=== PATIENT | male | born 1955 | race Caucasian/White ===

== ENCOUNTER 2017-04-12 23:20 | Emergency (ER) | payer MEDICAID ==
[~2017-04-12] VITALS: Ht 190.5 cm; Wt 93.2 kg
[~2017-04-12 23:20] MED LIST: ALPR0.5T PO; CITA20TA11 PO; HYDR2TAB15 PO; METH10SO PO; OLAN10TA7 PO; TEMA30CA PO
[2017-04-13 00:13] VITALS: Ht 190.5 cm; Wt 93.2 kg
--- NOTE | 2017-04-13 02:01 | ERD ---
ER Documentation Chief Complaint Date/Time DATE: 04/13/17 TIME: 01:58 Chief Complaint BIBA, procedure done at [facility] on rt hip,c/o severe pain HPI This is a 61-year-old male presents to the emergency room for evaluation of pain in his hip. The patient states that he has been in the hospital for 2 weeks and came to the emergency room today because he cannot get his prescription of Dilaudid filled. The patient is asking for Dilaudid by name. He is requesting intravenous Dilaudid and states that he cannot get into a pharmacy until Friday for ROS All systems reviewed and are negative except as per history of present illness. Medications Home Meds Active Scripts Alprazolam* (Xanax*) 0.5 Mg Tab, 0.5 MG PO Q8H Y for ANXIETY, #12 TAB Prov:SIVA MOLINA MD 10/26/15 Reported Medications Methadone Hcl* (Methadone Hcl*) 10 Mg/5 Ml Solution, 50 MG PO DAILY, ML 11/04/16 Hydromorphone Hcl* (Dilaudid*) 2 Mg Tablet, 2 MG PO Q4H, TAB 11/04/16 Citalopram Hydrobromide* (Celexa*) 20 Mg Tablet, 20 MG PO DAILY, TAB 12/17/14 Temazepam* (Temazepam*) 30 Mg Capsule, 30 MG PO HS Y for INSOMNIA, CAP 12/17/14 Olanzapine* (Zyprexa*) 10 Mg Tablet, 10 MG PO BID, TAB 12/17/14 Allergies Allergies: Coded Allergies: erythromycin base (Verified Allergy, Mild, 11/04/16) PMhx/Soc History of Surgery: Yes (Appendectomy, hernia, knee) Anesthesia Reaction: No Hx Neurological Disorder: Yes (MULTIPLE BACK FRACTURES AND BULGING DISCS, SCIATICA) Hx Respiratory Disorders: No Hx Cardiac Disorders: No Hx Psychiatric Problems: Yes Hx Miscellaneous Medical Probl: No Hx Alcohol Use: Yes Hx Substance Use: Yes (COCAINE) Hx Tobacco Use: Yes Smoking Status: Current every day smoker Physical Exam Vitals Vital Signs Date Time Temp Pulse Resp B/P Pulse Ox O2 Delivery O2 Flow Rate FiO2 04/13/17 00:13 98.1 94 18 137/97 98 Physical Exam Const: Disheveled appearance Head: Atraumatic Eyes: Normal Conjunctiva ENT: Poor dentition with multiple dental caries, normal External Ears, Nose and Mouth. Neck: Full range of motion..~ No meningismus. Resp: Clear to auscultation bilaterally Cardio: Regular rate and rhythm, no murmurs Abd: Soft, non tender, non distended. Normal bowel sounds Skin: 4 cm x 4 cm ulceration noted over the left hip, no purulent discharge no petechiae or rashes Back: No midline or flank tenderness Ext: No cyanosis, or edema Neur: Awake and alert Psych: Normal Mood and Affect Procedures/MDM This 61-year-old male presents to the emergency room for evaluation of pain. The patient is asking for intravenous Dilaudid and states that he was in the hospital was receiving 2 mg of Dilaudid every 3 hours. The patient has no other complaints at this time. Told the patient I will not give him any intravenous Dilaudid normally give him a prescription for any narcotic medication however he can have a one-time dose of 2 mg p.o. Dilaudid and he will be discharged at this time. Smoking Cessation Therapy: Pt. was lectured for greater than 3 minutes on the health risks of continued smoking and the benefits of cessation. Departure Diagnosis: Primary Impression: Hip pain Additional Impressions: Dental caries Tobacco abuse Tobacco abuse counseling Condition: Stable JUAN RAMON BROWN DO Apr 13, 2017 02:01
[2017-04-13] MEDS ORDERED: HYDROmorphONE 2 MG TAB PO ONE (02:30)
[2017-04-13 03:07] VITALS: BP 135/82; PULSE 87; RESP 18; TEMP 98.4
== END 2017-04-13 03:08 | disposition home or self-care (01) ==
LOC: E/R 23:20
DX: M25.551 Pain in right hip (principal); K02.9 Dental caries, unspecified; F17.210 Nicotine dependence, cigarettes, uncomplicated; Z71.6 Tobacco abuse counseling
CPT/HCPCS: J1170; Z7502; 99283

== ENCOUNTER 2018-02-01 16:36 | Emergency (ER) | END 2018-02-01 23:05 | disposition home or self-care (01) ==

== ENCOUNTER 2018-02-02 05:58 | Emergency (ER) | END 2018-02-04 09:45 ==

== ENCOUNTER 2018-02-09 19:16 | Emergency (ER) | END 2018-02-09 20:04 | disposition home or self-care (01) ==

== ENCOUNTER 2018-02-10 14:34 | Emergency (ER) | END 2018-02-12 07:40 ==

== ENCOUNTER 2018-07-25 13:42 | Emergency (ER) | END 2018-07-25 16:15 | disposition left against medical advice (07) ==

== ENCOUNTER 2019-01-12 17:23 | Emergency (ER) | payer OTHER ==
[~2019-01-12] VITALS: Ht 188 cm; Wt 90.9 kg
[~2019-01-12 17:23] MED LIST changes: +ALPR0.25 PO; -ALPR0.5T PO; +BUS5 PO; -CITA20TA11 PO; +DULO60CA59 PO; -HYDR2TAB15 PO; -METH10SO PO; -OLAN10TA7 PO; +OXYC-279 PO; +RISP2TAB3 PO; -TEMA30CA PO
[2019-01-12 17:24] VITALS: Ht 188 cm; Wt 90.9 kg
--- NOTE | 2019-01-12 17:32 | ERD ---
ER Documentation Chief Complaint Chief Complaint SUICIDAL HPI The patient is a 63-year-old male, presenting to the ER because of suicidal ideation. He last drank around 7 AM this morning, does not have any plan, denies auditory/visual hallucination. He denies headache, neck pain, chest pain, dyspnea, abdominal pain, vomiting, dizzy, diarrhea. He smokes/drinks/does illicit drug Past medical history: Chronic low back pain, schizophrenia, depression Past surgical history: Appendectomy ROS All systems reviewed and are negative except as per history of present illness. Medications Home Meds Active Scripts Alprazolam* (Xanax*) 0.25 Mg Tablet, 0.25 MG PO Q8H PRN for ANXIETY, #4 TAB Prov:SHIV DIAZ DO 02/09/18 Reported Medications Duloxetine Hcl* (Duloxetine Hcl*) 60 Mg Capsule.dr, 60 MG PO DAILY, #30 CAP 02/10/18 Oxycodone HCl/Acetaminophen (Percocet 5-325 mg Tablet) 1 Each Tablet, 1 EACH PO NEEDED, TAB 02/10/18 Risperidone* (Risperidone*) 2 Mg Tablet, 2 MG PO BID, TAB 02/10/18 Buspirone Hcl* (Buspar*) 5 Mg Tab, 5 MG PO TID, TAB 02/10/18 Allergies Allergies: Coded Allergies: erythromycin base (Verified Allergy, Mild, 02/10/18) PMhx/Soc History of Surgery: Yes (Appendectomy, hernia, knee) Anesthesia Reaction: No Hx Neurological Disorder: Yes (MULTIPLE BACK FRACTURES AND BULGING DISCS, SCIATICA) Hx Respiratory Disorders: No Hx Cardiac Disorders: No Hx Psychiatric Problems: Yes (depression , anxiety, ) Hx Miscellaneous Medical Probl: Yes (DRUG AND ETOH ABUSE) Hx Alcohol Use: Yes (etoh abuse) Hx Substance Use: Yes (COCAINE, MJ) Hx Tobacco Use: Yes Physical Exam Vitals Vital Signs Date Temp Pulse Resp B/P (MAP) Pulse Ox O2 O2 Flow FiO2 Time Delivery Rate 01/12/19 98.0 80 16 130/82 100 17:24 (98) Physical Exam Const: No acute distress. Head: Atraumatic. Eyes: Normal Conjunctiva. ENT: Normal External Ears, Nose and Mouth. Neck: Full range of motion. No meningismus. Resp: Clear to auscultation bilaterally. Cardio: Regular rate and rhythm. Abd: Soft, non distended, normal bowel sounds, non tender. Skin: No petechiae or rashes. Back: No midline or flank tenderness. Ext: No cyanosis, or edema. Neur: Awake and alert. No focal deficit Psych: Anxious, suicidal Result Diagram: 01/12/19 1741 01/12/19 1741 Results 24 hrs Laboratory Tests Test 01/12/19 17:41 01/12/19 18:20 White Blood Count 8.3 10^3/ul Red Blood Count 5.59 10^6/ul Hemoglobin 13.9 g/dl Hematocrit 42.2 % Mean Corpuscular Volume 75.5 fl Mean Corpuscular Hemoglobin 24.9 pg Mean Corpuscular Hemoglobin Concent 32.9 g/dl Red Cell Distribution Width 22.4 % Platelet Count 314 10^3/UL Mean Platelet Volume 9.0 fl Immature Granulocytes % 0.500 % Neutrophils % 67.5 % Lymphocytes % 16.6 % Monocytes % 14.8 % Eosinophils % 0.4 % Basophils % 0.2 % Nucleated Red Blood Cells % 0.0 /100WBC Immature Granulocytes # 0.040 10^3/ul Neutrophils # 5.6 10^3/ul Lymphocytes # 1.4 10^3/ul Monocytes # 1.2 10^3/ul Eosinophils # 0.0 10^3/ul Basophils # 0.0 10^3/ul Nucleated Red Blood Cells # 0.0 10^3/ul Sodium Level 135 mmol/L Potassium Level 4.3 mmol/L Chloride Level 97 mmol/L Carbon Dioxide Level 22 mmol/L Anion Gap 16 Blood Urea Nitrogen 11 mg/dl Creatinine 0.89 mg/dl Est Glomerular Filtrat Rate mL/min > 60 mL/min Glucose Level 124 mg/dl Calcium Level 9.1 mg/dl Total Bilirubin 1.3 mg/dl Direct Bilirubin 0.00 mg/dl Indirect Bilirubin 1.3 mg/dl Aspartate Amino Transf (AST/SGOT) 267 IU/L Alanine Aminotransferase (ALT/SGPT) 276 IU/L Alkaline Phosphatase 127 IU/L Total Protein 8.7 g/dl Albumin 4.6 g/dl Globulin 4.10 g/dl Albumin/Globulin Ratio 1.12 Salicylates Level < 1.0 mg/dl Acetaminophen Level < 10.0 ug/ml Ethyl Alcohol Level < 10.0 mg/dl Urine Color YELLOW Urine Clarity CLEAR Urine pH 7.0 Urine Specific [place] 1.016 Urine Ketones 2+ mg/dL Urine Nitrite NEGATIVE mg/dL Urine Bilirubin NEGATIVE mg/dL Urine Urobilinogen 2+ mg/dL Urine Leukocyte Esterase NEGATIVE Darwin/ul Urine Microscopic RBC 2 /HPF Urine Microscopic WBC 1 /HPF Urine Hemoglobin 1+ mg/dL Urine Glucose NEGATIVE mg/dL Urine Total Protein 1+ mg/dl Urine Opiates Screen NEGATIVE Urine Barbiturates NEGATIVE Urine Amphetamines Screen Negative Urine Benzodiazepines Screen POSITIVE Urine Cocaine Screen NEGATIVE Urine Cannabinoids POSITIVE Current Medications Medications Dose Sig/Jordi Start Time Status Last (Trade) Ordered Route PRN Stop Time Admin Dose Reason Admin Ondansetron 4 mg ONCE STAT 01/12/19 DC 01/12/19 HCl (Zofran IV 18:24 01/12/19 18:34 Inj) 18:25 Lorazepam 1 mg ONCE ONCE 01/12/19 DC 01/12/19 (Ativan) PO 19:30 01/12/19 19:29 19:31 Quetiapine 50 mg BID PO 01/12/19 Fumarate 23:00 (Seroquel) 5 mg TID PO 01/13/19 Chlordiazepox 09:00 rachael (Librium) Thiamine 100 mg ONCE ONCE 01/12/19 DC HCl PO 23:00 01/12/19 (Vitamin B1) 23:01 Folic Acid 1 mg ONCE ONCE 01/12/19 DC (Folic Acid) PO 23:00 01/12/19 23:01 1 tab ONCE STAT 01/12/19 DC Multivitamins PO 22:35 01/12/19 22:39 Therapeutic (Theragran) Procedures/MDM UDS Pending MEDICAL MAKING DECISION: The patient is a 63-year-old male, presenting with acute suicidal ideation, mild alcohol withdrawal syndrome (CIWA-Ar <10). He was treated with Zofran 4 mg ODT for nausea, Ativan 1 mg po for etoh withdrawal, folic acid 1 mg p.o., thiamine 100 mg p.o., multivitamin 1 p.o. for alcohol abuse with good response. The differential diagnoses considered include but are not limited to alcohol withdrawal, impending DT, medical noncompliance, decompensated psychiatric illness Consultation: He was evaluated by telepsychiatrist who recommended voluntary admission to psychiatric hospital Departure Diagnosis: Primary Impression: Suicidal ideations Additional Impressions: Alcohol withdrawal Abnormal LFTs Condition: Stable Comments The patient's blood pressure was elevated (>120/80) but appears stable without evidence of hypertension emergency or urgency. The patient was counseled about the risks of hypertension and urged to pursue outpatient monitoring and therapy within a week with their primary care physician. Telepsychiatrist recommendation was carried out I discussed the findings with the patient. He is waiting for PT evaluation Disclaimer: Inadvertent spelling and grammatical errors are likely due to EHR/dictation software use and do not reflect on the overall quality of patient care. Also, please note that the electronic time recorded on this note does not necessarily reflect the actual time of the patient encounter. REJI NAVA MD Jan 12, 2019 17:32
[2019-01-12] MEDS ORDERED: ONDANSETRON 4 MG INJ IV STA (18:24)
[2019-01-12] MEDS ORDERED: LORAZEPAM 1 MG TAB PO ONE (19:30)
--- NOTE | 2019-01-12 21:26 | PSY ---
Date/Time of Note Date/Time of Note DATE: 01/12/19 TIME: 21:21 Psychiatric Subjective Eval Consent Pt consented to telemedicine: Yes Subjective Evaluation Patient location: emergency Chief Complaint: STATES HE IS WITHDRAWING FROM ETOH, LAST DRINK THIS AM; SUICIDAL Medical history Problems Medical Problems: (1) Abdominal pain Status: Acute (2) Acute exacerbation of chronic low back pain Status: Acute (3) Alcohol intoxication Status: Acute (4) Alcoholic intoxication Status: Acute (5) Altered mental status Status: Acute (6) Anxiety Status: Acute (7) Back pain Status: Acute (8) Chronic pain Status: Acute (9) Dental caries Status: Acute (10) Dental infection Status: Acute (11) Depression Status: Acute (12) Depression Status: Acute (13) Depression Status: Acute (14) Diarrhea Status: Acute (15) Hip pain Status: Acute (16) Homelessness Status: Acute (17) Hypernatremia Status: Acute (18) Major depressive disorder Status: Acute (19) Microcytic anemia Status: Acute (20) Multiple complaints Status: Acute (21) Nausea & vomiting Status: Acute (22) Patient left without being seen Status: Acute (23) Polysubstance abuse Status: Acute (24) Polysubstance overdose Status: Acute (25) Suicidal ideation Status: Acute (26) Suicidal ideations Status: Acute (27) Thrombocytosis Status: Acute (28) Tobacco abuse Status: Acute (29) Tobacco abuse counseling Status: Acute Allergies: Coded Allergies: erythromycin base (Verified Allergy, Mild, 02/10/18) Psychiatric Objective Eval Mental Status Examination: Laboratory Results Laboratory Tests Test 01/12/19 17:41 01/12/19 18:20 White Blood Count 8.3 10^3/ul Red Blood Count 5.59 10^6/ul Hemoglobin 13.9 g/dl Hematocrit 42.2 % Mean Corpuscular Volume 75.5 fl Mean Corpuscular Hemoglobin 24.9 pg Mean Corpuscular Hemoglobin Concent 32.9 g/dl Red Cell Distribution Width 22.4 % Platelet Count 314 10^3/UL Mean Platelet Volume 9.0 fl Immature Granulocytes % 0.500 % Neutrophils % 67.5 % Lymphocytes % 16.6 % Monocytes % 14.8 % Eosinophils % 0.4 % Basophils % 0.2 % Nucleated Red Blood Cells % 0.0 /100WBC Immature Granulocytes # 0.040 10^3/ul Neutrophils # 5.6 10^3/ul Lymphocytes # 1.4 10^3/ul Monocytes # 1.2 10^3/ul Eosinophils # 0.0 10^3/ul Basophils # 0.0 10^3/ul Nucleated Red Blood Cells # 0.0 10^3/ul Sodium Level 135 mmol/L Potassium Level 4.3 mmol/L Chloride Level 97 mmol/L Carbon Dioxide Level 22 mmol/L Anion Gap 16 Blood Urea Nitrogen 11 mg/dl Creatinine 0.89 mg/dl Est Glomerular Filtrat Rate mL/min > 60 mL/min Glucose Level 124 mg/dl Calcium Level 9.1 mg/dl Total Bilirubin 1.3 mg/dl Direct Bilirubin 0.00 mg/dl Indirect Bilirubin 1.3 mg/dl Aspartate Amino Transf (AST/SGOT) 267 IU/L Alanine Aminotransferase (ALT/SGPT) 276 IU/L Alkaline Phosphatase 127 IU/L Total Protein 8.7 g/dl Albumin 4.6 g/dl Globulin 4.10 g/dl Albumin/Globulin Ratio 1.12 Salicylates Level < 1.0 mg/dl Acetaminophen Level < 10.0 ug/ml Ethyl Alcohol Level < 10.0 mg/dl Urine Color YELLOW Urine Clarity CLEAR Urine pH 7.0 Urine Specific [place] 1.016 Urine Ketones 2+ mg/dL Urine Nitrite NEGATIVE mg/dL Urine Bilirubin NEGATIVE mg/dL Urine Urobilinogen 2+ mg/dL Urine Leukocyte Esterase NEGATIVE Darwin/ul Urine Microscopic RBC 2 /HPF Urine Microscopic WBC 1 /HPF Urine Hemoglobin 1+ mg/dL Urine Glucose NEGATIVE mg/dL Urine Total Protein 1+ mg/dl Urine Opiates Screen NEGATIVE Urine Barbiturates NEGATIVE Urine Amphetamines Screen Negative Urine Benzodiazepines Screen POSITIVE Urine Cocaine Screen NEGATIVE Urine Cannabinoids POSITIVE Assessment and Plan Recommendation/Plan Discharge Disposition: Psychiatric inpatient Legal Status: Voluntary Assessment Additional comments: IDENTIFYING INFORMATION: 63 year old Male patient who is currently located at the hospital and for whom psychiatric consultation was requested. SOURCES OF INFORMATION: The patient who appears to be reliable and the medical records; the nursing staff. CHIEF COMPLAINT: "suicidal". HISTORY OF PRESENT ILLNESS: The patient was interviewed via telemedicine in the presence of and under the supervision of nursing staff of the hospital. The consent to conducting this interview via telemedicine was obtained by the nursing staff at the hospital. NELY Maynard reports that the patient presented with SI with plan to crash his car over a bridge. Is on a 5150 hold. The patient reports having SI, depressed mood, anhedonia, insomnia, low appetite, AH telling him to hurt himself. The patient denies having delusions. The patient reports drinking heavily daily. Last drink was this morning. +h/o seizures. The patient denies using any other substances. In terms of past psychiatric history, the patient reports having a history of past psychiatric hospitalizations. The patient reports having a history of past suicide attempts. PAST MEDICAL HISTORY: None. CURRENT MEDICATIONS: seroquel, xanax, unknown other medications. ALLERGIES TO MEDICATIONS: NKDA. LABORATORY TESTS: CBC with Hb 13.9, MCV 75.5, MCH 24.9, CMP with AST 267, ALT 276, UDS + benzos, MJ, alcohol level not detected. SOCIAL HISTORY: homeless, lives in his car, , has 2 children; not employed. REVIEW OF SYSTEMS: Constitutional (e.g., fever, weight loss): negative; Eyes, Ears, Nose, Mouth, Throat: negative; Cardiovascular: negative; Respiratory: negative; Gastrointestinal: negative; Genitourinary: negative; Musculoskeletal: negative; Integumentary (skin and/or breast): negative; Neurological: negative; Psychiatric: as per HPI; Endocrine: negative; Hematologic/Lymphatic: negative; Allergic/Immunologic: negative. MENTAL STATUS EXAMINATION: General Appearance and Behavior: Calm, cooperative with the interview, pleasant with the current interviewer, makes fair eye contact, fairly groomed, no abnormal movements noted, Speech: Regular rate, regular rhythm, normal latency, normal volume, somewhat decreased amount, Flow of thought: sequential, logical, goal-directed, Content of thought: + auditory hallucinations, no visual hallucinations, no delusions, positive for suicidal ideation; no homicidal ideation, Mood: "depressed", Affect: dysthymic, dysphoric, not reactive, Attention: normal based on the interview, Insight: fair, Judgment: poor, Memory: normal based on the interview, Sensorium: alert and oriented to person, place and date. ASSESSMENT: The patient's presentation and history are consistent with the diagnosis of unspecified mood disorder, alcohol use disorder. The patient presents in a major depressive episode in the context of medication noncompliance, psychosocial stressors and substance use. No evidence of oswaldo, hypomania on exam. PLAN: - Medication management: Would recommend starting alcohol withdrawal protocol per CIWA. Would also consider administering thiamine, folic acid, multivitamin. Would start Seroquel 50 mg by mouth twice a day. Would start haloperidol 5 mg IM PRN severe agitation q4 hours. Would start diphenhydramine 50 mg IM PRN severe agitation q4 hours. Would start lorazepam 2 mg IM PRN severe agitation q4 hours CyprusWill defer to the inpatient psychiatry team for other medication changes. - Labs: No other laboratory tests are needed at this time. - Psychotherapy: Provided supportive psychotherapy and psychoeducation. - Disposition: Would recommend voluntary admission to the inpatient psychiatric unit as the patient would benefit from such an intervention so long as the patient has been cleared medically for admission to psychiatry. The patient is agreeable to being hospitalized in the inpatient psychiatric unit at this time. Would place on suicide precautions. LAISHA BAKER MD Jan 12, 2019 21:26
[2019-01-12] MEDS ORDERED: MULTIVITAMINS THERAPEUTIC TAB PO STA (22:35)
[2019-01-12] MEDS ORDERED: QUETIAPINE 25 MG TAB PO SCH (23:00)
[2019-01-12] MEDS ORDERED: THIAMINE 100 MG TAB PO ONE (23:00)
[2019-01-12] MEDS ORDERED: FOLIC ACID 1 MG TAB PO ONE (23:00)
[2019-01-13] MEDS ORDERED: TRA100 PO (00:38)
[2019-01-13 06:54] VITALS: BP 118/80; PULSE 72; RESP 20
[2019-01-13] MEDS ORDERED: CHLORDIAZEPOXIDE 5 MG CAP PO SCH (09:00)
== END 2019-01-13 07:10 ==
LOC: E/R 17:23
DX: F10.239 Alcohol dependence with withdrawal, unspecified (principal); R94.5 Abnormal results of liver function studies; R40.2142 Coma scale, eyes open, spontaneous, at arrival to emergency department; R40.2252 Coma scale, best verbal response, oriented, at arrival to emergency department; R40.2362 Coma scale, best motor response, obeys commands, at arrival to emergency department; Z87.891 Personal history of nicotine dependence
CPT/HCPCS: 80053; 80307; 81001; 85025; 96374; J2405; Z7502; Z7610